=== PATIENT | female | born 1995 | race Caucasian/White ===

== ENCOUNTER 2018-05-01 20:01 | Emergency (ER) | payer MEDICAID ==
[~2018-05-01] VITALS: Ht 165.1 cm; Wt 68.0 kg
[2018-05-01 20:13] VITALS: BP_SYST 113
--- NOTE | 2018-05-01 20:15 | NUR ---
Patient triaged and placed in [facility]IG[facility] ROOM. VSS and patient appears in no acute distress at this time. Accompanied by sister, awaiting available bed, and MD notified of need for MSE.
--- NOTE | 2018-05-01 20:15 | NUR ---
Patient AAO X4, c/o rash to lower and upper legs x 1 month. Patient states she has had chronic rash to lower extremities for 1 year, but recently rash has spread and become "very itchy". Patient states she went to her primary care doctor and was diagnosed with scabies, but sent home with no medications to treat skin condition. informed. Patient in no distress at this time.
--- NOTE | 2018-05-01 20:16 | NUR ---
ER at bedside examining patient in triage room.
[2018-05-01 21:00] VITALS: BP_SYST 110
--- NOTE | 2018-05-01 21:00 | NUR ---
Patient given written and verbal discharge instructions and verbalizes understanding. ER MD Dr. Pereira discussed with patient the results and treatment provided. Patient in stable condition. ID arm band removed. Rx ofpermethrin and atarax given. Patient educated on pain management and to follow up with PMD. Pain Scale 0/10 . Opportunity for questions provided and answered. Medication side effect fact sheet provided.
== END 2018-05-01 21:00 | disposition home or self-care (01) ==
LOC: SED 20:01
DX: L20.9 Atopic dermatitis, unspecified (principal); B86 Scabies
CPT/HCPCS: 99283

== ENCOUNTER 2020-07-09 16:20 | Emergency (ER) | payer MEDICAID ==
[~2020-07-09] VITALS: Ht 167.6 cm; Wt 70.3 kg
[2020-07-09 16:26] VITALS: BP_SYST 139
[2020-07-09 20:37] VITALS: BP_SYST 139
== END 2020-07-09 20:20 | disposition home or self-care (01) ==
LOC: SED 16:20
DX: R06.02 Shortness of breath (principal); F12.90 Cannabis use, unspecified, uncomplicated
CPT/HCPCS: 71046-TC; 99283

== ENCOUNTER 2020-09-20 15:19 | Observation (INO) | payer MEDICAID, SELFPAY ==
[~2020-09-20] VITALS: Ht 165.1 cm; Wt 73.7 kg
[2020-09-20 15:20] VITALS: BP_SYST 152
[2020-09-20] MEDS ORDERED: NACL 0.9% 1,000 ML IV ONE ×2 (15:30→18:15)
[2020-09-20] MEDS ORDERED: ONDANSETRON HCL 4 MG/2 ML VIAL IVP ONE (15:30)
[2020-09-20 16:00] LABS: BASOPHILS # (AUTO) 0.1 K/uL (0.0-0.2); BASOPHILS % (AUTO) 0.5 % (0.0-2.0); EOSINOPHILS % (AUTO) 0.1 % (0.0-4.0); HEMATOCRIT 37.8 % (36-48); HEMOGLOBIN 12.8 g/dL (12.0-16.0); LYMPHOCYTES # (AUTO) 1.2 K/uL (1.0-5.5); LYMPHOCYTES % (AUTO) 8.5 % (20.5-51.5); MEAN CORPUSCULAR HEMOGLOBIN 29 pg (27-31); MEAN CORPUSCULAR HGB CONC 34 % (32-36); MEAN CORPUSCULAR VOLUME 87 fL (79.0-98.0); MONOCYTES # (AUTO) 0.3 K/uL (0.0-1.0); MONOCYTES % (AUTO) 1.9 % (1.7-9.3); NEUTROPHILS # (AUTO) 12.4 K/uL (1.8-7.7); PLATELET COUNT (AUTO) 367 K/uL (130-430); RED BLOOD CELL COUNT(AUTO) 4.36 MIL/uL (4.2-6.2); RED CELL DISTRIBUTION WIDTH 12.6 % (9.0-15.0)
[2020-09-20 16:08] LABS: CALCIUM 8.6 mg/dL (8.4-11.0); CREATININE 0.92 mg/dL (0.55-1.30); POTASSIUM 3.4 mmol/L (3.5-5.1); PROTHROMBIN TIME 10.2 SECS (9.5-12.5)
[2020-09-20 16:28] LABS: BILIRUBIN,URINE NEGATIVE (NEGATIVE); BLOOD, URINE 3+ (NEGATIVE); CLARITY/URINE CLEAR (CLEAR); GLUCOSE,URINE NEGATIVE (NEGATIVE); KETONES,URINE 1+ (NEGATIVE); LEUKOCYTE ESTERASE ,URINE NEGATIVE (NEGATIVE); PH,URINE 6.5 (5.0-8.0); PROTEIN URINE NEGATIVE (NEGATIVE); UROBILINOGEN,URINE 0.2 (0.2-1.0)
[2020-09-20 16:37] LABS: NITRITE, URINE NEGATIVE (NEGATIVE)
[2020-09-20 16:38] LABS: COLOR,URINE YELLOW (YELLOW)
[2020-09-20 16:39] LABS: BACTERIA,URINE FEW /HPF (None Seen); RBC,URINE 0-3 /HPF (0-3); WBC,URINE 0-3 /HPF (0-3)
[2020-09-20 16:40] LABS: MUCUS,URINE None Seen /LPF (None Seen)
[2020-09-20] MEDS ORDERED: METOCLOPRAMIDE HCL 10 MG/2 ML VIAL IVP ONE (18:15)
[2020-09-20] MEDS ORDERED: ONDANSETRON HCL 4 MG/2 ML VIAL IVP PRN (19:00)
[2020-09-20] MEDS ORDERED: METHYLERGONOVINE MALEATE 0.2 MG/ML AMP IM ONE (19:00)
[2020-09-20] MEDS: LR 1,000 ML IV SCH (19:53)
[2020-09-20 20:55] VITALS: BP_SYST 120
[2020-09-21] MEDS: LR 1,000 ML IV SCH ×2 (01:40→06:04)
[2020-09-21 06:45] LABS: BASOPHILS # (AUTO) 0.1 K/uL (0.0-0.2); EOSINOPHILS # (AUTO) 0.1 K/uL (0.0-0.4); EOSINOPHILS % (AUTO) 1.3 % (0.0-4.0); HEMATOCRIT 35.5 % (36-48); HEMOGLOBIN 11.8 g/dL (12.0-16.0); LYMPHOCYTES # (AUTO) 3.1 K/uL (1.0-5.5); LYMPHOCYTES % (AUTO) 35.4 % (20.5-51.5); MEAN CORPUSCULAR HEMOGLOBIN 29 pg (27-31); MEAN CORPUSCULAR HGB CONC 33 % (32-36); MEAN CORPUSCULAR VOLUME 88 fL (79.0-98.0); MONOCYTES # (AUTO) 0.7 K/uL (0.0-1.0); MONOCYTES % (AUTO) 7.7 % (1.7-9.3); NEUTROPHILS # (AUTO) 4.8 K/uL (1.8-7.7); NEUTROPHILS % (AUTO) 54.6 % (40.0-70.0); PLATELET COUNT (AUTO) 322 K/uL (130-430); RED BLOOD CELL COUNT(AUTO) 4.05 MIL/uL (4.2-6.2); RED CELL DISTRIBUTION WIDTH 12.5 % (9.0-15.0); WHITE BLOOD COUNT (AUTO) 8.7 K/uL (4.8-10.8)
[2020-09-21 07:34] VITALS: BP_SYST 117
[2020-09-21 10:46] VITALS: BP_SYST 116
[2020-09-21 10:59] VITALS: BP_SYST 116
[2020-09-21 12:09] VITALS: BP_SYST 113
== END 2020-09-21 11:15 | disposition home or self-care (01) ==
LOC: SED 15:19 → SMU 18:58
PROVIDERS: ADMIT Obstetrics & Gynecology; ATTEND Obstetrics & Gynecology
DX: O03.9 Complete or unspecified spontaneous abortion without complication (principal); Z20.822 Contact with and (suspected) exposure to COVID-19; Z79.899 Other long term (current) drug therapy; Z3A.09 9 weeks gestation of pregnancy
CPT/HCPCS: 36415 ×2; 76856; 80048; 81000; 84702 ×2; 85025 ×2; 85610; 86886; 86900; 86901; 87426; 96361 ×2; 96372; 96374; 96375; 99284; G0378 ×2; J2210; J2405; J2765; J7120